=== PATIENT | female | born 1960 | race Caucasian/White ===

== ENCOUNTER 2021-10-26 20:30 | Observation (INO) ==
[2021-10-26] MEDS ORDERED: Melatonin 3 MG TABLET PO PRN (22:47)
[2021-10-26] MEDS ORDERED: Naloxone 0.4 MG/ML INJ IVP PRN (22:47)
[2021-10-26] MEDS ORDERED: Ondansetron ODT 4 MG TAB.RAPDIS SL PRN (22:47)
[2021-10-26] MEDS ORDERED: Acetaminophen 325 MG TABLET PO PRN (22:47)
[2021-10-27 01:10] LABS: Calcium 9.3 mg/dL (8.6-10.3); Potassium 4.5 mEq/L (3.5-5.1)
[2021-10-27] MEDS ORDERED: Dextrose 4 GM Chewable Tablets PO PRN ×2 (03:01)
[2021-10-27] MEDS ORDERED: D5% in Water 1,000 ML IVC PRN (03:01)
[2021-10-27] MEDS ORDERED: *HR* Dextrose 50 % in Water (Syg) 50 ML SYRINGE IVP PRN (03:01)
[2021-10-27] MEDS: 0.9 % Sodium Chloride 1,000 ML IVC SCH ×2 (03:41→12:26)
[2021-10-27 04:09] LABS: Bacteria,Urine Moderate per hpf (None-Few); Bilirubin,Urine Negative (Negative); Blood,Urine Negative (Negative); Clarity,Urine Clear (Clear); Color,Urine Light-Yellow (Yellow); Glucose,Urine (UA) Normal (Normal); Ketones,Urine Negative (Negative); Leukocyte Esterase,Urine Moderate (Negative); Mucus,Urine Few per lpf (None-Few); Nitrite,Urine Negative (Negative); PH,Urine 5.5 pH Units (5.0-8.0); Protein,Urine Negative (Neg-Trace); Protein/Creatinine Ratio,Urine 0.35 mg/mg (0.00-0.20); RBC,Urine 0-3 per hpf (0-3); Sodium, Urine 97.4 mEq/L; Specific Gravity,Urine 1.013 (1.010-1.025); Urobilinogen,Urine Normal (Normal); WBC,Urine 15-30 per hpf (0-3)
[2021-10-27 06:08] LABS: Uric Acid 15.7 mg/dL (2.3-7.6)
[2021-10-27] MEDS: Insulin LISPRO 300 UNITS/3 ML VIAL SUBQ SCH ×3 (07:05→16:03)
[2021-10-27] MEDS ORDERED: SODIUM ZIRCONIUM CYCLOSILICATE 5 GM POWD.PACK PO SCH (09:00)
[2021-10-27 10:45] LABS: Estimated Average Glucose 283 mg/dl; Hemoglobin A1C 11.5 %
[2021-10-27] MEDS: allopurinoL 100 MG TABLET PO SCH (12:25)
[2021-10-27 12:29] LABS: Basophils # 0.1 K/mcL (0.0-0.2); Basophils % 1.3 %; Eosinophils # 0.5 K/mcL (0.0-0.6); Eosinophils % 6.6 %; Hematocrit 35.7 % (35.3-44.9); Hemoglobin 11.1 g/dL (11.5-15.4); Lymphocytes # 1.3 K/mcL (0.6-4.6); Lymphocytes % 17.3 %; Mean Corpuscular HGB Conc 31.1 g/dL (31.6-35.5); Mean Corpuscular Hemoglobin 29.2 pg (28.0-33.3); Mean Corpuscular Volume 93.9 fL (83.0-100.0); Mean Platelet Volume 11.8 fL (9.4-12.4); Monocytes # 0.7 K/mcL (0.0-1.3); Monocytes % 8.9 %; Neutrophils # 4.7 K/mcL (1.6-8.9); Platelet Count 128 K/mcL (140-400); Red Cell Distribution Width 15.9 % (11.5-14.5); Segmented Neutrophils % 63.9 %; White Blood Count 7.4 K/mcL (4.3-11.1)
[2021-10-27 22:53] LABS: Protein/Creatinine Ratio,Urine 0.53 mg/mg (0.00-0.20); Sodium, Urine 105.7 mEq/L
[2021-10-28 05:41] LABS: Basophils # 0.1 K/mcL (0.0-0.2); Basophils % 1.9 %; Eosinophils # 0.4 K/mcL (0.0-0.6); Eosinophils % 5.8 %; Hematocrit 36.6 % (35.3-44.9); Hemoglobin 11.6 g/dL (11.5-15.4); Immature Granulocytes % 2.2 % (0-4); Lymphocytes # 1.5 K/mcL (0.6-4.6); Lymphocytes % 20.7 %; Mean Corpuscular HGB Conc 31.7 g/dL (31.6-35.5); Mean Corpuscular Hemoglobin 28.9 pg (28.0-33.3); Mean Corpuscular Volume 91.3 fL (83.0-100.0); Mean Platelet Volume 11.4 fL (9.4-12.4); Monocytes # 0.5 K/mcL (0.0-1.3); Monocytes % 7.5 %; Neutrophils # 4.5 K/mcL (1.6-8.9); Platelet Count 138 K/mcL (140-400); Red Blood Count 4.01 M/mcL (3.82-4.97); Red Cell Distribution Width 15.5 % (11.5-14.5); Segmented Neutrophils % 61.9 %; White Blood Count 7.2 K/mcL (4.3-11.1)
[2021-10-28 05:59] LABS: Complement C3 154 mg/dL (87-200)
[2021-10-28 06:00] LABS: Calcium 10.2 mg/dL (8.6-10.3); Potassium 4.7 mEq/L (3.5-5.1)
[2021-10-28] MEDS ORDERED: Bisacodyl 10 MG RECTAL SUPPOSITORY RC PRN (07:51)
[2021-10-28] MEDS: allopurinoL 100 MG TABLET PO SCH (08:01)
[2021-10-28] MEDS: Insulin LISPRO 300 UNITS/3 ML VIAL SUBQ SCH ×3 (08:01→16:34)
[2021-10-28] MEDS: Metoprolol XL (24 HR) Succ 25 MG TAB.ER.24H PO SCH (08:41)
[2021-10-28] MEDS: Aspirin Enteric Coated 81 MG Tablet PO SCH (09:17)
[2021-10-28] MEDS: Nystatin POWDER 30 GM BOTTLE TP SCH ×2 (09:18→20:56)
[2021-10-28] MEDS: levoFLOXacin 250 MG TABLET PO SCH (09:18)
[2021-10-28] MEDS: Sennosides/Docusate Sodium TABLET PO SCH ×2 (09:18→20:56)
[2021-10-28] MEDS: risperiDONE 0.25 MG TABLET PO SCH ×2 (09:18→20:55)
[2021-10-28] MEDS: Gabapentin 100 MG CAPSULE PO SCH ×2 (09:18→20:56)
[2021-10-28 10:12] LABS: INR 2.4; Prothrombin Time 26.7 Seconds (9.4-12.1)
[2021-10-28] MEDS ORDERED: *HR* Warfarin 2.5 MG TABLET PO ONE (18:00)
[2021-10-28] MEDS ORDERED: *HR* Warfarin 1 MG TABLET PO ONE (18:00)
[2021-10-28] MEDS ORDERED: Warfarin perPT PO SCH (18:00)
[2021-10-28] MEDS ORDERED: Insulin DETEMIR 100 UNIT/ML X5UNITS SUBQ SCH (21:00)
[2021-10-28] MEDS ORDERED: Insulin LISPRO 300 UNITS/3 ML VIAL SUBQ SCH (21:00)
[2021-10-29 02:00] LABS: Calcium 10.7 mg/dL (8.6-10.3); Potassium 4.8 mEq/L (3.5-5.1); Uric Acid 10.1 mg/dL (2.3-7.6)
[2021-10-29 02:06] LABS: Prothrombin Time 22.7 Seconds (9.4-12.1)
[2021-10-29 02:17] LABS: Basophils # 0.2 K/mcL (0.0-0.2); Basophils % 1.9 %; Eosinophils # 0.5 K/mcL (0.0-0.6); Eosinophils % 5.1 %; Immature Granulocytes % 2.5 % (0-4); Lymphocytes # 1.8 K/mcL (0.6-4.6); Lymphocytes % 19.9 %; Mean Corpuscular HGB Conc 31.6 g/dL (31.6-35.5); Mean Corpuscular Hemoglobin 29.1 pg (28.0-33.3); Mean Platelet Volume 11.5 fL (9.4-12.4); Monocytes # 0.6 K/mcL (0.0-1.3); Monocytes % 6.8 %; Neutrophils # 5.8 K/mcL (1.6-8.9); Platelet Count 154 K/mcL (140-400); Red Blood Count 4.13 M/mcL (3.82-4.97); Red Cell Distribution Width 15.1 % (11.5-14.5); Segmented Neutrophils % 63.8 %; White Blood Count 9.1 K/mcL (4.3-11.1)
[2021-10-29 07:30] VITALS: O2SAT 95
[2021-10-29] MEDS: allopurinoL 100 MG TABLET PO SCH (08:10)
[2021-10-29] MEDS: risperiDONE 0.25 MG TABLET PO SCH (08:10)
[2021-10-29] MEDS: Gabapentin 100 MG CAPSULE PO SCH (08:10)
[2021-10-29] MEDS: Aspirin Enteric Coated 81 MG Tablet PO SCH (08:10)
[2021-10-29] MEDS: Metoprolol XL (24 HR) Succ 25 MG TAB.ER.24H PO SCH (08:10)
[2021-10-29] MEDS: Nystatin POWDER 30 GM BOTTLE TP SCH (08:10)
[2021-10-29] MEDS: Sennosides/Docusate Sodium TABLET PO SCH (08:10)
[2021-10-29] MEDS: levoFLOXacin 250 MG TABLET PO SCH (08:10)
[2021-10-29] MEDS: Insulin LISPRO 300 UNITS/3 ML VIAL SUBQ SCH ×2 (08:11→13:05)
[2021-10-29] MEDS ORDERED: *HR* Digoxin 0.125 MG TABLET PO SCH (09:00)
[2021-10-29 09:57] LABS: Folate > 22.3 ng/mL (3.0-16.0); Vitamin B12 402 pg/mL (250-1100); Vitamin D 25 Hydroxy 13 ng/mL (30-80)
[2021-10-29 10:30] LABS: Hepatitis B Surface Antigen Nonreactive (Nonreactive)
[2021-10-29 10:58] LABS: Hepatitis C Virus Antibody Nonreactive (Nonreactive)
[2021-10-29 10:59] LABS: Hepatitis B Core IgM Nonreactive (Nonreactive)
[2021-10-29 11:00] LABS: Hepatitis A Antibody IgM Nonreactive (Nonreactive)
[2021-10-29 11:15] VITALS: BP 108/69; PULSE 75; TEMP 97.8
[2021-10-29] MEDS ORDERED: *HR* Warfarin 3 MG TABLET PO ONE (18:00)
[2021-10-29] MEDS ORDERED: Warfarin 3 MG, Warfarin 0.5 MG PO ONE (18:00)
[2021-10-30 10:14] LABS: Kappa Qnt Free Light Chains 45.13 mg/L (3.30-19.40); Lambda Qnt Free Light Chains 34.59 mg/L (5.71-26.30)
== END 2021-10-29 16:12 ==
LOC: 2ANU → SUATTDRO 22:30
PROVIDERS: ADMIT Internal Medicine; ATTEND Hospitalist

== ENCOUNTER 2021-12-03 14:35 | Inpatient (IN) ==
[2021-12-03] MEDS ORDERED: Melatonin 3 MG TABLET PO PRN (17:40)
[2021-12-03] MEDS ORDERED: Naloxone 0.4 MG/ML INJ IVP PRN (17:40)
[2021-12-03] MEDS ORDERED: Mag Hydrox/Al Hydrox/Simeth 30 ML UDC PO PRN (17:40)
[2021-12-03] MEDS ORDERED: Perflutren Lipid Microsphere 1.3 ML in 0.9 % Sodium Chloride 8.7 ML IVP PRN (17:43)
[2021-12-03] MEDS ORDERED: D5% in Water 1,000 ML IVC PRN (18:07)
[2021-12-03] MEDS ORDERED: Dextrose 4 GM Chewable Tablets PO PRN ×2 (18:07)
[2021-12-03] MEDS ORDERED: *HR* Dextrose 50 % in Water (Syg) 50 ML SYRINGE IVP PRN (18:07)
[2021-12-03 18:25] LABS: Basophils # 0.2 K/mcL (0.0-0.2); Basophils % 1.9 %; Eosinophils # 0.3 K/mcL (0.0-0.6); Eosinophils % 2.6 %; Hematocrit 36.9 % (35.3-44.9); Hemoglobin 11.3 g/dL (11.5-15.4); Immature Granulocytes % 0.8 % (0-4); Lymphocytes # 1.2 K/mcL (0.6-4.6); Lymphocytes % 10.7 %; Mean Corpuscular HGB Conc 30.6 g/dL (31.6-35.5); Mean Corpuscular Hemoglobin 28.2 pg (28.0-33.3); Mean Platelet Volume 11.8 fL (9.4-12.4); Monocytes # 0.5 K/mcL (0.0-1.3); Monocytes % 4.8 %; Neutrophils # 8.6 K/mcL (1.6-8.9); Platelet Count 207 K/mcL (140-400); Red Blood Count 4.01 M/mcL (3.82-4.97); Red Cell Distribution Width 16.1 % (11.5-14.5); Segmented Neutrophils % 79.2 %; White Blood Count 10.9 K/mcL (4.3-11.1)
[2021-12-03 18:45] LABS: Calcium 9.9 mg/dL (8.6-10.3); Potassium 3.2 mEq/L (3.5-5.1)
[2021-12-03 18:48] LABS: Troponin I 0.05 ng/mL (< 0.04)
[2021-12-03] MEDS: Furosemide 40 MG/4 ML VIAL IVP SCH (21:39)
[2021-12-03] MEDS: Insulin LISPRO 300 UNITS/3 ML VIAL SUBQ SCH (21:39)
[2021-12-04] MEDS: Insulin LISPRO 300 UNITS/3 ML VIAL SUBQ SCH ×4 (08:23→18:23)
[2021-12-04] MEDS: Furosemide 40 MG/4 ML VIAL IVP SCH ×2 (08:25→20:15)
[2021-12-04] MEDS ORDERED: Furosemide 40 MG/4 ML VIAL IVP SCH (09:00)
[2021-12-04 17:11] LABS: INR 2.4; Prothrombin Time 26.8 Seconds (9.4-12.1)
[2021-12-04] MEDS ORDERED: Warfarin perPT PO PRN (18:00)
[2021-12-04] MEDS ORDERED: *HR* Warfarin 1 MG TABLET PO ONE (18:00)
[2021-12-04] MEDS ORDERED: *HR* Warfarin 2.5 MG TABLET PO ONE (18:00)
[2021-12-04] MEDS: Ondansetron ODT 4 MG TAB.RAPDIS SL PRN (20:14)
[2021-12-04] MEDS: rOPINIRole 0.25 MG TABLET PO SCH (20:14)
[2021-12-05] MEDS: Ondansetron ODT 4 MG TAB.RAPDIS SL PRN ×2 (03:35→12:02)
[2021-12-05 06:06] LABS: Hematocrit 35.1 % (35.3-44.9); Hemoglobin 10.5 g/dL (11.5-15.4); Mean Corpuscular HGB Conc 29.9 g/dL (31.6-35.5); Mean Corpuscular Hemoglobin 27.4 pg (28.0-33.3); Mean Corpuscular Volume 91.6 fL (83.0-100.0); Mean Platelet Volume 11.7 fL (9.4-12.4); Platelet Count 233 K/mcL (140-400); Red Blood Count 3.83 M/mcL (3.82-4.97); Red Cell Distribution Width 16.3 % (11.5-14.5); White Blood Count 11.7 K/mcL (4.3-11.1)
[2021-12-05 06:15] LABS: INR 2.4; Prothrombin Time 26.8 Seconds (9.4-12.1)
[2021-12-05 06:28] LABS: Calcium 9.7 mg/dL (8.6-10.3); Potassium 3.5 mEq/L (3.5-5.1)
[2021-12-05] MEDS: Furosemide 40 MG/4 ML VIAL IVP SCH (08:30)
[2021-12-05] MEDS: Aspirin Enteric Coated 81 MG Tablet PO SCH (08:31)
[2021-12-05] MEDS: Metoprolol XL (24 HR) Succ 25 MG TAB.ER.24H PO SCH (08:31)
[2021-12-05] MEDS: rOPINIRole 0.25 MG TABLET PO SCH ×2 (08:31→20:38)
[2021-12-05] MEDS: *HR* Digoxin 0.125 MG TABLET PO SCH (08:33)
[2021-12-05] MEDS: Insulin LISPRO 300 UNITS/3 ML VIAL SUBQ SCH ×4 (08:34→20:38)
[2021-12-05] MEDS ORDERED: Acetaminophen 325 MG TABLET PO PRN (10:07)
[2021-12-05] MEDS ORDERED: *HR* Warfarin 2.5 MG TABLET PO ONE (18:00)
[2021-12-05] MEDS ORDERED: *HR* Warfarin 1 MG TABLET PO ONE (18:00)
[2021-12-05] MEDS ORDERED: Furosemide 40 MG/4 ML VIAL IVP ONE (18:02)
[2021-12-05] MEDS ORDERED: Albumin 25% 25gram/100mL 25 GM/100 ML IV.SOLN IVPB ONE (18:03)
[2021-12-05] MEDS ORDERED: Furosemide 80 MG in 0.9 % Sodium Chloride 50 ML IVPB ONE (18:08)
[2021-12-06] MEDS: Furosemide 40 MG/4 ML VIAL IVP SCH ×3 (00:21→22:23)
[2021-12-06 05:03] LABS: Basophils # 0.3 K/mcL (0.0-0.2); Basophils % 2.4 %; Eosinophils # 0.5 K/mcL (0.0-0.6); Eosinophils % 4.2 %; Hematocrit 35.2 % (35.3-44.9); Hemoglobin 10.6 g/dL (11.5-15.4); Immature Granulocytes % 0.9 % (0-4); Lymphocytes # 1.1 K/mcL (0.6-4.6); Lymphocytes % 9.7 %; Mean Corpuscular HGB Conc 30.1 g/dL (31.6-35.5); Mean Corpuscular Hemoglobin 27.7 pg (28.0-33.3); Mean Corpuscular Volume 91.9 fL (83.0-100.0); Mean Platelet Volume 11.6 fL (9.4-12.4); Monocytes # 0.6 K/mcL (0.0-1.3); Monocytes % 5.2 %; Neutrophils # 9.2 K/mcL (1.6-8.9); Platelet Count 219 K/mcL (140-400); Red Blood Count 3.83 M/mcL (3.82-4.97); Red Cell Distribution Width 16.3 % (11.5-14.5); Segmented Neutrophils % 77.6 %; White Blood Count 11.8 K/mcL (4.3-11.1)
[2021-12-06 05:04] LABS: Hematocrit 35.1 % (35.3-44.9); Hemoglobin 10.5 g/dL (11.5-15.4); Mean Corpuscular HGB Conc 29.9 g/dL (31.6-35.5); Mean Corpuscular Hemoglobin 27.5 pg (28.0-33.3); Mean Corpuscular Volume 91.9 fL (83.0-100.0); Mean Platelet Volume 11.5 fL (9.4-12.4); Platelet Count 217 K/mcL (140-400); Red Blood Count 3.82 M/mcL (3.82-4.97); Red Cell Distribution Width 16.2 % (11.5-14.5); White Blood Count 11.6 K/mcL (4.3-11.1)
[2021-12-06 05:22] LABS: Calcium 10.1 mg/dL (8.6-10.3); Potassium 3.4 mEq/L (3.5-5.1)
[2021-12-06 05:23] LABS: Albumin 3.6 g/dL (3.5-5.7); Albumin/Globulin Ratio 1.4 (1.1-2.2); Bilirubin,Total 0.6 mg/dL (0.3-1.0); Calcium 10.2 mg/dL (8.6-10.3); Globulin 2.5 g/dL (2.4-3.5); Magnesium 1.8 mg/dL (1.6-2.6); Potassium 3.4 mEq/L (3.5-5.1); Total Protein 6.1 g/dL (6.4-8.9)
[2021-12-06 05:30] LABS: INR 2.2; Prothrombin Time 23.9 Seconds (9.4-12.1)
[2021-12-06] MEDS: Insulin LISPRO 300 UNITS/3 ML VIAL SUBQ SCH ×4 (10:14→22:24)
[2021-12-06] MEDS: rOPINIRole 0.25 MG TABLET PO SCH (10:15)
[2021-12-06] MEDS: Aspirin Enteric Coated 81 MG Tablet PO SCH (10:15)
[2021-12-06] MEDS: Metoprolol XL (24 HR) Succ 25 MG TAB.ER.24H PO SCH (10:15)
[2021-12-06] MEDS: Ondansetron ODT 4 MG TAB.RAPDIS SL PRN (14:18)
[2021-12-06] MEDS ORDERED: *HR* Warfarin 1 MG TABLET PO ONE (18:00)
[2021-12-06] MEDS ORDERED: *HR* Warfarin 2.5 MG TABLET PO ONE (18:00)
[2021-12-07] MEDS: risperiDONE 0.25 MG TABLET PO SCH ×3 (04:56→20:09)
[2021-12-07 05:18] LABS: Basophils # 0.3 K/mcL (0.0-0.2); Basophils % 2.6 %; Eosinophils # 0.5 K/mcL (0.0-0.6); Eosinophils % 4.7 %; Hematocrit 36.1 % (35.3-44.9); Hemoglobin 10.6 g/dL (11.5-15.4); Immature Granulocytes % 0.9 % (0-4); Lymphocytes # 1.2 K/mcL (0.6-4.6); Lymphocytes % 11.4 %; Mean Corpuscular HGB Conc 29.4 g/dL (31.6-35.5); Mean Corpuscular Volume 92.1 fL (83.0-100.0); Mean Platelet Volume 11.7 fL (9.4-12.4); Monocytes # 0.6 K/mcL (0.0-1.3); Monocytes % 5.2 %; Neutrophils # 8.1 K/mcL (1.6-8.9); Platelet Count 230 K/mcL (140-400); Red Blood Count 3.92 M/mcL (3.82-4.97); Red Cell Distribution Width 16.3 % (11.5-14.5); Segmented Neutrophils % 75.2 %; White Blood Count 10.7 K/mcL (4.3-11.1)
[2021-12-07 05:32] LABS: INR 2.2; Potassium 3.6 mEq/L (3.5-5.1); Prothrombin Time 24.3 Seconds (9.4-12.1)
[2021-12-07] MEDS: Furosemide 40 MG/4 ML VIAL IVP SCH ×3 (07:28→20:08)
[2021-12-07] MEDS: rOPINIRole 0.25 MG TABLET PO SCH (07:29)
[2021-12-07] MEDS: Aspirin Enteric Coated 81 MG Tablet PO SCH (08:20)
[2021-12-07] MEDS: Metoprolol XL (24 HR) Succ 25 MG TAB.ER.24H PO SCH (08:21)
[2021-12-07] MEDS: Insulin LISPRO 300 UNITS/3 ML VIAL SUBQ SCH ×3 (08:25→17:14)
[2021-12-07] MEDS: *HR* Digoxin 0.125 MG TABLET PO SCH (08:25)
[2021-12-07] MEDS ORDERED: *HR* Warfarin 2.5 MG TABLET PO ONE (18:00)
[2021-12-07] MEDS ORDERED: *HR* Warfarin 1 MG TABLET PO ONE (18:00)
[2021-12-07] MEDS: Melatonin 3 MG TABLET PO SCH (20:09)
[2021-12-07] MEDS ORDERED: Albumin 25% 25gram/100mL 25 GM/100 ML IV.SOLN IVPB ONE (20:30)
[2021-12-07] MEDS ORDERED: Insulin DETEMIR 100 UNIT/ML X5UNITS SUBQ SCH (21:00)
[2021-12-08 06:29] LABS: Hematocrit 35.7 % (35.3-44.9); Hemoglobin 10.5 g/dL (11.5-15.4); Mean Corpuscular HGB Conc 29.4 g/dL (31.6-35.5); Mean Corpuscular Hemoglobin 27.3 pg (28.0-33.3); Mean Corpuscular Volume 92.7 fL (83.0-100.0); Mean Platelet Volume 11.6 fL (9.4-12.4); Platelet Count 206 K/mcL (140-400); Red Blood Count 3.85 M/mcL (3.82-4.97); Red Cell Distribution Width 16.2 % (11.5-14.5); White Blood Count 9.8 K/mcL (4.3-11.1)
[2021-12-08 06:37] LABS: INR 2.3; Prothrombin Time 25.4 Seconds (9.4-12.1)
[2021-12-08 06:49] LABS: Calcium 10.1 mg/dL (8.6-10.3); Potassium 3.9 mEq/L (3.5-5.1)
[2021-12-08] MEDS: Insulin LISPRO 300 UNITS/3 ML VIAL SUBQ SCH ×3 (08:34→16:46)
[2021-12-08] MEDS: Aspirin Enteric Coated 81 MG Tablet PO SCH (08:35)
[2021-12-08] MEDS: risperiDONE 0.25 MG TABLET PO SCH ×2 (08:35→21:38)
[2021-12-08] MEDS: Metoprolol XL (24 HR) Succ 25 MG TAB.ER.24H PO SCH (08:35)
[2021-12-08] MEDS: Furosemide 40 MG/4 ML VIAL IVP SCH (08:36)
[2021-12-08] MEDS: Furosemide 80 MG in 0.9 % Sodium Chloride 50 ML IV SCH (16:46)
[2021-12-08] MEDS ORDERED: Insulin DETEMIR 100 UNIT/ML X5UNITS SUBQ SCH (21:00)
[2021-12-08] MEDS ORDERED: Furosemide 40 MG/4 ML VIAL IVP SCH (21:00)
[2021-12-08] MEDS: Melatonin 3 MG TABLET PO SCH (21:38)
[2021-12-09 06:21] LABS: Hematocrit 36.4 % (35.3-44.9); Hemoglobin 10.6 g/dL (11.5-15.4); Mean Corpuscular HGB Conc 29.1 g/dL (31.6-35.5); Mean Corpuscular Hemoglobin 26.9 pg (28.0-33.3); Mean Corpuscular Volume 92.4 fL (83.0-100.0); Mean Platelet Volume 11.9 fL (9.4-12.4); Platelet Count 226 K/mcL (140-400); Red Blood Count 3.94 M/mcL (3.82-4.97); Red Cell Distribution Width 16.4 % (11.5-14.5); White Blood Count 9.8 K/mcL (4.3-11.1)
[2021-12-09 06:31] LABS: INR 2.7; Prothrombin Time 29.4 Seconds (9.4-12.1)
[2021-12-09 06:42] LABS: Alanine Aminotransferase 9 Units/L (7-52); Albumin 3.7 g/dL (3.5-5.7); Albumin/Globulin Ratio 1.3 (1.1-2.2); Alkaline Phosphatase 62 Units/L (34-104); Aspartate Amino Transferase 9 Units/L (13-39); BUN/Creatinine Ratio 37 (6-26); Bilirubin,Total 0.6 mg/dL (0.3-1.0); Blood Urea Nitrogen 40 mg/dL (8-23); Calcium 10.1 mg/dL (8.6-10.3); Carbon Dioxide 40 mEq/L (23-29); Chloride 95 mEq/L (98-107); Globulin 2.8 g/dL (2.4-3.5); Glucose 262 mg/dL (70-105); Osmolality,Calculated 303 (280-300); Sodium 137 mEq/L (136-145); Total Protein 6.5 g/dL (6.4-8.9); eGFR For African Americans > 60 (> 60); eGFR For Non-African Americans 52 (> 60)
[2021-12-09] MEDS: Metoprolol XL (24 HR) Succ 25 MG TAB.ER.24H PO SCH (09:22)
[2021-12-09] MEDS: Aspirin Enteric Coated 81 MG Tablet PO SCH (09:22)
[2021-12-09] MEDS: risperiDONE 0.25 MG TABLET PO SCH ×2 (09:23→20:00)
[2021-12-09] MEDS: Insulin LISPRO 300 UNITS/3 ML VIAL SUBQ SCH ×3 (09:27→16:39)
[2021-12-09] MEDS ORDERED: Albumin 25% 25gram/100mL 25 GM/100 ML IV.SOLN IVPB ONE (09:28)
[2021-12-09] MEDS: Furosemide 80 MG in 0.9 % Sodium Chloride 50 ML IV SCH (13:06)
[2021-12-09] MEDS ORDERED: acetaZOLAMIDE 250 MG in Water for inj. (sterile) 2.5 ML IVP ONE (13:12)
[2021-12-09] MEDS ORDERED: *HR* Warfarin 3 MG TABLET PO ONE (18:00)
[2021-12-09] MEDS: Melatonin 3 MG TABLET PO SCH (20:00)
[2021-12-09] MEDS ORDERED: Insulin DETEMIR 100 UNIT/ML X5UNITS SUBQ SCH (21:00)
[2021-12-10 00:41] LABS: Hematocrit 34.1 % (35.3-44.9); Hemoglobin 10.3 g/dL (11.5-15.4); Mean Corpuscular HGB Conc 30.2 g/dL (31.6-35.5); Mean Corpuscular Hemoglobin 27.6 pg (28.0-33.3); Mean Corpuscular Volume 91.4 fL (83.0-100.0); Mean Platelet Volume 11.2 fL (9.4-12.4); Platelet Count 203 K/mcL (140-400); Red Blood Count 3.73 M/mcL (3.82-4.97); Red Cell Distribution Width 16.5 % (11.5-14.5); White Blood Count 10.9 K/mcL (4.3-11.1)
[2021-12-10 00:48] LABS: INR 3.5; Prothrombin Time 39.1 Seconds (9.4-12.1)
[2021-12-10 01:00] LABS: Calcium 9.9 mg/dL (8.6-10.3); Potassium 3.9 mEq/L (3.5-5.1)
[2021-12-10] MEDS: risperiDONE 0.25 MG TABLET PO SCH ×2 (08:12→21:49)
[2021-12-10] MEDS: Aspirin Enteric Coated 81 MG Tablet PO SCH (08:12)
[2021-12-10] MEDS: Metoprolol XL (24 HR) Succ 25 MG TAB.ER.24H PO SCH (08:13)
[2021-12-10] MEDS: *HR* Digoxin 0.125 MG TABLET PO SCH (08:13)
[2021-12-10] MEDS: Insulin LISPRO 300 UNITS/3 ML VIAL SUBQ SCH ×4 (08:13→21:59)
[2021-12-10] MEDS ORDERED: acetaZOLAMIDE 250 MG in Water for inj. (sterile) 2.5 ML IVP ONE (11:00)
[2021-12-10] MEDS ORDERED: Insulin DETEMIR 100 UNIT/ML X5UNITS SUBQ SCH (21:00)
[2021-12-10] MEDS: Melatonin 3 MG TABLET PO SCH (21:49)
[2021-12-10] MEDS ORDERED: D5% in Water 1,000 ML IVC PRN (21:50)
[2021-12-10] MEDS ORDERED: *HR* Dextrose 50 % in Water (Syg) 50 ML SYRINGE IVP PRN (21:50)
[2021-12-10] MEDS ORDERED: Dextrose 4 GM Chewable Tablets PO PRN ×2 (21:50)
[2021-12-11] MEDS: traZODone 50 MG TABLET PO PRN (01:31)
[2021-12-11 01:58] LABS: Hematocrit 34.8 % (35.3-44.9); Hemoglobin 10.4 g/dL (11.5-15.4); Mean Corpuscular HGB Conc 29.9 g/dL (31.6-35.5); Mean Corpuscular Hemoglobin 27.3 pg (28.0-33.3); Mean Corpuscular Volume 91.3 fL (83.0-100.0); Mean Platelet Volume 11.6 fL (9.4-12.4); Platelet Count 214 K/mcL (140-400); Red Blood Count 3.81 M/mcL (3.82-4.97); Red Cell Distribution Width 16.7 % (11.5-14.5); White Blood Count 10.9 K/mcL (4.3-11.1)
[2021-12-11 02:05] LABS: INR 3.5; Prothrombin Time 39.2 Seconds (9.4-12.1)
[2021-12-11 02:16] LABS: Calcium 10.1 mg/dL (8.6-10.3)
[2021-12-11] MEDS: Metoprolol XL (24 HR) Succ 25 MG TAB.ER.24H PO SCH (08:16)
[2021-12-11] MEDS: Aspirin Enteric Coated 81 MG Tablet PO SCH (08:16)
[2021-12-11] MEDS: risperiDONE 0.25 MG TABLET PO SCH ×2 (08:17→20:08)
[2021-12-11] MEDS: Insulin LISPRO 300 UNITS/3 ML VIAL SUBQ SCH ×4 (08:19→20:54)
[2021-12-11] MEDS: Melatonin 3 MG TABLET PO SCH (20:08)
[2021-12-11] MEDS: Insulin DETEMIR 100 UNIT/ML X5UNITS SUBQ SCH (20:55)
[2021-12-11] MEDS ORDERED: Insulin DETEMIR 100 UNIT/ML X5UNITS SUBQ SCH (21:00)
[2021-12-12] MEDS: traZODone 50 MG TABLET PO PRN ×2 (00:31→23:06)
[2021-12-12 03:00] LABS: Hematocrit 34.7 % (35.3-44.9); Hemoglobin 10.5 g/dL (11.5-15.4); Mean Corpuscular HGB Conc 30.3 g/dL (31.6-35.5); Mean Corpuscular Hemoglobin 27.5 pg (28.0-33.3); Mean Corpuscular Volume 90.8 fL (83.0-100.0); Platelet Count 219 K/mcL (140-400); Red Blood Count 3.82 M/mcL (3.82-4.97); Red Cell Distribution Width 16.7 % (11.5-14.5); White Blood Count 10.1 K/mcL (4.3-11.1)
[2021-12-12 03:10] LABS: INR 2.9; Prothrombin Time 32.4 Seconds (9.4-12.1)
[2021-12-12 03:29] LABS: Calcium 10.2 mg/dL (8.6-10.3)
[2021-12-12] MEDS: Aspirin Enteric Coated 81 MG Tablet PO SCH (08:33)
[2021-12-12] MEDS: Metoprolol XL (24 HR) Succ 25 MG TAB.ER.24H PO SCH (08:33)
[2021-12-12] MEDS: risperiDONE 0.25 MG TABLET PO SCH ×2 (08:33→20:34)
[2021-12-12] MEDS: *HR* Digoxin 0.125 MG TABLET PO SCH (08:35)
[2021-12-12] MEDS: Insulin LISPRO 300 UNITS/3 ML VIAL SUBQ SCH ×4 (08:35→20:35)
[2021-12-12] MEDS: Insulin DETEMIR 100 UNIT/ML X5UNITS SUBQ SCH ×2 (08:35→20:35)
[2021-12-12] MEDS: acetaZOLAMIDE 250 MG TABLET PO SCH (12:02)
[2021-12-12] MEDS ORDERED: *HR* Warfarin 2.5 MG TABLET PO ONE (18:00)
[2021-12-12] MEDS: Melatonin 3 MG TABLET PO SCH (20:35)
[2021-12-13 03:00] LABS: INR 2.3; Prothrombin Time 25.9 Seconds (9.4-12.1)
[2021-12-13 07:21] VITALS: O2SAT 98
[2021-12-13] MEDS: Metoprolol XL (24 HR) Succ 25 MG TAB.ER.24H PO SCH (08:23)
[2021-12-13] MEDS: Aspirin Enteric Coated 81 MG Tablet PO SCH (08:23)
[2021-12-13] MEDS: risperiDONE 0.25 MG TABLET PO SCH (08:23)
[2021-12-13] MEDS: acetaZOLAMIDE 250 MG TABLET PO SCH (08:23)
[2021-12-13] MEDS: Insulin DETEMIR 100 UNIT/ML X5UNITS SUBQ SCH (08:24)
[2021-12-13] MEDS: Insulin LISPRO 300 UNITS/3 ML VIAL SUBQ SCH ×2 (08:24→11:26)
[2021-12-13 09:48] LABS: Hematocrit 35.8 % (35.3-44.9); Hemoglobin 10.6 g/dL (11.5-15.4); Mean Corpuscular HGB Conc 29.6 g/dL (31.6-35.5); Mean Corpuscular Hemoglobin 27.2 pg (28.0-33.3); Mean Corpuscular Volume 91.8 fL (83.0-100.0); Mean Platelet Volume 11.9 fL (9.4-12.4); Platelet Count 210 K/mcL (140-400); Red Cell Distribution Width 17.1 % (11.5-14.5); White Blood Count 10.1 K/mcL (4.3-11.1)
[2021-12-13 10:11] LABS: Calcium 9.9 mg/dL (8.6-10.3); Potassium 3.9 mEq/L (3.5-5.1)
[2021-12-13 10:43] VITALS: BP 108/70; PULSE 73; TEMP 97.1
[2021-12-13 12:47] LABS: Influenza A PCR Negative (Negative); Influenza B PCR Negative (Negative); Resp. Syncytial Virus PCR Negative (Negative)
[2021-12-13 12:57] LABS: SARS-CoV-2 by PCR (In House) Negative (Negative)
[2021-12-13] MEDS ORDERED: *HR* Warfarin 3 MG TABLET PO ONE (18:00)
== END 2021-12-13 15:28 | DRG 194 ==
LOC: 3ANU → SUATTDRO 16:55
PROVIDERS: ADMIT Internal Medicine; ATTEND Family Medicine